=== PATIENT | male | born 1975 | race Asian ===

== ENCOUNTER 2018-09-13 00:34 | Emergency (ER) | payer MEDICAID, OTHER ==
[~2018-09-13] VITALS: Ht 154.9 cm; Wt 65.0 kg
[~2018-09-13 00:34] MED LIST: ELIM TOP
[2018-09-13 00:36] VITALS: Ht 154.9 cm; Wt 65.0 kg
--- NOTE | 2018-09-13 00:46 | ERD ---
ER Documentation Chief Complaint Chief Complaint bib ra from street for skin redness and rash HPI Is a 43-year-old male brought in from rescue history with skin redness and rash. He said he has insect bites. Denies fevers chills nausea vomiting. Denies any other current issues. ROS All systems reviewed and are negative except as per history of present illness. Medications Home Meds Active Scripts Permethrin* (Elimite*) 5% Cr, 1 APPLIC TOP ONCE for 7 Days, TUB Prov:ALYSON IVORY. 09/13/18 PMhx/Soc Medical and Surgical Hx: pt denies Medical Hx, pt denies Surgical Hx Hx Alcohol Use: No Hx Substance Use: No Hx Tobacco Use: No Smoking Status: Never smoker Physical Exam Vitals Vital Signs Date Temp Pulse Resp B/P (MAP) Pulse Ox O2 O2 Flow FiO2 Time Delivery Rate 09/13/18 98.7 81 19 126/65 100 00:36 (85) Physical Exam Const: No acute distress Head: Atraumatic Eyes: Normal Conjunctiva ENT: Normal External Ears, Nose and Mouth. Neck: Full range of motion. No meningismus. Resp: Clear to auscultation bilaterally Cardio: Regular rate and rhythm, no murmurs Abd: Soft, non tender, non distended. Normal bowel sounds Skin: No petechiae or rashes Back: No midline or flank tenderness Ext: No cyanosis, or edema Neur: Awake and alert Psych: Normal Mood and Affect Procedures/MDM Medical decision making: Very pleasant 43-year-old male with insect bites. Discharged home with Elimite cream. Follow-up with primary care physician. Gerardo gurrola for worsening symptoms. Departure Diagnosis: Primary Impression: Erythema Condition: Stable Patient Instructions: Insect Bites and Stings ALYSON IVORY Sep 13, 2018 00:46
[2018-09-13 00:48] VITALS: BP 130/81; PULSE 79; RESP 18
== END 2018-09-13 00:56 | disposition home or self-care (01) ==
LOC: E/R 00:34
DX: L53.9 Erythematous condition, unspecified (principal)
CPT/HCPCS: 99283